=== PATIENT | female | born 1975 | race Caucasian/White ===

== ENCOUNTER 2020-09-27 09:42 | Outpatient (CLI) | payer BC ==
[2020-09-27] VITALS (18 sets, daily range): BP systolic 100–136; BP diastolic 67–97
== END 2020-09-27 23:59 | disposition home or self-care (01) ==
LOC: CARD DIAG 09:42
PROVIDERS: ATTEND Internal Medicine Interventional Cardiology
DX: R42 Dizziness and giddiness (principal)
CPT/HCPCS: 93660